=== PATIENT | female | born 1985 | race Caucasian/White ===

== ENCOUNTER 2017-04-12 10:31 | Day surgery (SDC) | payer OTHER ==
[~2017-04-12] VITALS: Ht 180.3 cm; Wt 54.4 kg
[~2017-04-12 10:31] MED LIST: BACTRIM 400 MG-1 TAB PO; BACTRIM DS 8001 TAB PO; CIPRO 500MG TA500 MG PO; CITALOPRAM20 MG PO; ENDOCET 325 MG-1 TA1 PO; FERROUS SULFAT325 M2 PO; HYDROCODONE1 TABLET PO; KEFLEX 500MG.500 MG PO; MEDROL 4MG. DOSE4 MG PO; MIDOL CRAMP FO200 MG OR; NOMEDS XX; NORCO 325 MG-51 TAB PO; ORTHO TRI-CYCLE1 TAB PO; PHENERGAN 25MG.25 M1 PO; PHENERGAN VC +120 ML PO; PRENATAL1 TA2 PO; SEPTRA DS 800 M1 TAB PO; TRAMADOL 50MG T50 MG PO; TYLENOL W/CODEI1 TA2 PO; VIBRAMYCIN 100100 MG PO; VIBRAMYCIN HYC100 MG PO; VISTARIL25 MG PO; VOLTAREN75 MG PO
--- NOTE | 2017-04-12 12:37 | Anesthesia Record ---
Anesthesia Record Part I Total IV fluids: 800 EBL (ml): 0 Urine Output: 0 B/P: 114/62 % SaO2: 97 Pulse: 82 Resps: 12 Temp: 97 Patient is: Awake, Stable Stable to PACU at: 1235 at 1237
--- NOTE | 2017-04-12 12:39 | Anesthesia Record ---
Anesthesia Record Part II Discharge time: 1305 Destination: Same day surgery PACU nurse assessment review? Yes Patient is: Awake, Stable Anesthesia complications? No at [id number]
[2017-04-12 17:32] VITALS: BP 122/83
--- NOTE | 2017-04-13 11:27 | Operative Note ---
[employer] Date of Procedure: 04/12/17 Time of Procedure: 1200 Surgeon: Juan M Wynn Procedure performed: Bilateral myringotomy and tubes Anesthesia: General Pre-operative dx: 1. Persistent acute otitis media 2. Bilateral serous otitis media Post-operative dx: 1. Persistent acute otitis media 2. Bilateral serous otitis media Operative procedure: With the patient under general anesthesia the right ear was prepped and draped. The RIGHT tympanic membrane was acutely inflamed. An incision was made in the posterior inferior quadrant. Serous fluid was aspirated and a Cintron bevel tube was inserted. Ciprodex drops were applied. The findings in the left ear RIGHT identical, a Cintron bevel tube was inserted and Ciprodex drops were applied. The operating microscope was used for all the procedure, and the patient was sent to recovery in good general condition. EBL (ml): 1 Complications: None at 3217
== END 2017-04-12 14:05 | disposition home or self-care (01) ==
LOC: SDC 10:31
PROVIDERS: Otolaryngology
PROC: 099500Z Drainage of Right Middle Ear with Drainage Device, Open Approach (ICD-10-PCS; 2017-04-12)
PROC: 099600Z Drainage of Left Middle Ear with Drainage Device, Open Approach (ICD-10-PCS; principal; 2017-04-12 12:00)
DX: H65.23 Chronic serous otitis media, bilateral (principal)
CPT/HCPCS: J2405